=== PATIENT | male | born 1980 | race Caucasian/White ===

== ENCOUNTER 2017-12-20 22:31 | Emergency (ER) | payer BC ==
[2017-12-20 22:35] VITALS: BP 140/101; PULSE 98; TEMP 99.8; BMI 28.0
[2017-12-20] MEDS ORDERED: MAG HYDROX/AL HYDROX/SIMETH 30 ML UNIT-DOSE CUP PO ONE (23:13)
[2017-12-20] MEDS ORDERED: FAMOTIDINE 20 MG/50 ML IVPB 20 MG/50 ML MG IVPB ONE (23:17)
[2017-12-20] MEDS ORDERED: MAG HYDROX/AL HYDROX/SIMETH 30 ML UNIT-DOSE CUP ONE (23:17)
--- NOTE | 2017-12-20 23:18 | PDOC ---
History of Present Illness - General Chief Complaint: Chest Pain Stated Complaint: CHEST PAIN Time Seen by Provider: 12/20/17 22:36 History Source: Patient Exam Limitations: No Limitations - History of Present Illness Initial Comments: 12/20/17 23:26 This is a 37-year-old male who has a history of anorexia/bulimia who said he has been purging the last couple a days. Patient said that he developed a burning sensation in his esophagus and epigastric area after purging a couple of times yesterday and then again today. Patient comes in complaining of moderately severe discomfort in his epigastric area radiating up through his esophagus into his chest. Patient denies any shortness of breath, nausea, diaphoresis. Patient denies any history of hypertension high cholesterol or diabetes. Patient is also complaining of lower abdominal crampy pain associated with diarrhea. Patient said he has had multiple episodes of diarrhea over the last 2 days. 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 Patient does have a family history of cardiac disease. Patient is also a smoker. PAST MEDICAL HISTORY: no significant history PAST SURGICAL HISTORY: no significant history FAMILY HISTORY: no pertinant history SOCIAL HISTORY: Pt lives with family and is employed. MEDICATIONS: reviewed ALLERGIES: As per nursing notes Review of Systems General: No fevers or chills, no weakness, no weight loss HEENT: No change in vision. No sore throat,. No ear pain CardioVascular: No chest pain or shortness of breath Respiratory:No cough, or wheezing. Gastrointestinal: no nausea, vomitting, diarrhea or constipation, No rectal bleeding Genitourinary: No dysuria, hematuria, or frequency Musculoskeletal: No joint or muscle pain or swelling Neurologic: No headache, vertigo, dizziness or loss of consciousness Psychiatric: nor depression Skin: No rashes or easy bruising Endocrine: no increased thirst or abnormal weight change Allergic: no skin or latex allergy All other systems reviewed and normal Exam: General: Well-nourished well-developed individual, no acute distress HEENT: Throat: Normal, tonsils normal, no erythema or exudate Neck: Supple, no meningeal signs, no lymphadenopathy Eyes::Pupils equal reactive and round, extraocular motion intact Chest: Nontender to palpation Cardiac: S1-S2 normal, regular rate and rhythm, no murmurs rubs or gallops Respiratory: Lungs clear to auscultation bilateral Abdomen: Soft, nondistended, normal bowel sounds, mildly tender to palpation epigastric area, and moderately tender to palpation left lower quadrant no guarding or rebound. Extremities: Warm, dry, no cyanosis, clubbing, or edema Skin: No rashes Neuro: Alert and oriented x3, CN II - XII intact, nonfocal exam with normal strength, normal sensation, normal reflexes, normal gait, Psych: Normal mood and affect Medical decision making this is a 37-year-old with abdominal pain with some radiation up into his esophagus. Patient has had nausea vomiting and diarrhea over the last couple a days. It is uncertain as to whether or not patient is inducing the vomiting and diarrhea or not. Patient did state that he induced vomiting several times. We'll obtain a workup to include CBC, comp, cardiac enzymes, EKG. We will give some Maalox, Tums and Pepcid. Will reassess and follow up the workup for evaluation EKG shows normal sinus rhythm with an occasional PAC otherwise no acute ST-T wave changes and a normal EKG. 12/21/17 00:07 Reevaluation. Patient states she feels a little bit better after the medication but still is having a significant amount of discomfort in his left lower quadrant area. On reexam patient does still remained tender in the left lower quadrant. Epigastric tenderness seems to have resolved at this point. Will obtain a CAT scan of the abdomen and pelvis to rule out diverticulitis. As patient does have a white count with a left shift. 12/21/17 02:04 Reevaluation patient pain has nearly resolved. Patient had a CAT scan that shows liquid stool in the colon and some aching of the colonic wall consistent with a diarrheal-type illness. Patient was started on Cipro given a first dose in the emergency room and a prescription for 5 more days twice a day was sent to his pharmacy Patient discharged home will follow-up with his primary care doctor Past History - Past Medical History Allergies/Adverse Reactions: Allergies Allergy/AdvReac Type Severity Reaction Status Date / Time No Known Allergies Allergy Verified 08/14/15 10:07 Home Medications: Ambulatory Orders Amphet Asp/Amphet/D-Amphet [Adderall 10 mg Tablet] 10 mg PO BID 08/14/15 Ciprofloxacin [Cipro (Restricted To Id)] 500 mg PO BID #10 tablet 12/21/17 COPD: No Psychiatric Problems: Yes - Surgical History Abdominal Surgery: Yes (HERNIA REPAIR) - Suicide/Smoking/Psychosocial Hx Smoking History: Never smoked Have you smoked in the past 12 months: Yes Number of Cigarettes Smoked Daily: 3 'Breaking Loose' booklet given: 08/14/15 Hx Alcohol Use: Yes (SOCIAL) Drug/Substance Use Hx: No Substance Use Type: None *Physical Exam - Vital Signs Last Vital Signs Temp Pulse Resp BP Pulse Ox 99.8 F H 98 H 20 140/101 98 12/20/17 22:33 12/20/17 22:33 12/20/17 22:33 12/20/17 22:33 12/20/17 22:33 Heart Score/ECG Review - History History: Slightly suspicious - Electrocardiogram EKG: Normal - Age Age: </= 45 - Risk Factors Risk Factors Heart Score: Yes Smoking History, Yes Positive family hx of cardiac disease Based on the list above the patient has:: 1-2 risk factors - Troponin Troponin: </= normal limit - Score Heart Score - Total: 1 ED Treatment Course - LABORATORY CBC & Chemistry Diagram: 12/20/17 23:30 12/20/17 23:30 *DC/Admit/Observation/Transfer Diagnosis at time of Disposition: Nausea vomiting and diarrhea, Infectious diarrhea in adult patient - Discharge Dispostion Disposition: HOME Condition at time of disposition: Stable Admit: No - Prescriptions Prescriptions: Ciprofloxacin [Cipro (Restricted To Id)] 500 mg PO BID #10 tablet - Referrals Referrals: Andres Weller [Primary Care Provider] - - Patient Instructions Additional Instructions: For the pain and discomfort take Maalox, Tums or Pepcid or you can also take all 3 as directed on the [id number] container. In addition to that for the diarrhea take Cipro 1 tablet twice a day for 5 days. Continue to stay well hydrated with electrolyte balance drinks such as Gatorade or Powerade or Pedialyte. Return to the emergency department immediately with ANY new, persistent or worsening symptoms. Continue any medications as previously prescribed by your physician. You should follow up with your primary doctor as soon as possible regarding today's emergency department visit. . Please make sure your doctor reviews the results of your emergency evaluation. Thank you for coming to the Emergency Department today for your care. It was a pleasure to see you today. Please note that your evaluation is INCOMPLETE until you follow-up with your doctor. - Post Discharge Activity
[2017-12-20 23:43] LABS: HEMOGLOBIN 14.8 GM/dl (11.7-16.9); MCH 29.8 pg (25.7-33.7); MCHC 34.4 g/dl (32.0-35.9); MEAN CELL VOLUME 86.8 fl (80-96); MEAN PLT VOLUME 8.2 fl (7.5-11.1); PLATELET COUNT 217 K/MM3 (134-434); RBC 4.95 M/mm3 (4.00-5.60); RDW 11.9 % (11.9-15.9); WHITE BLOOD COUNT 15.4 K/mm3 (4.0-10.8)
[2017-12-20 23:50] LABS: ALBUMIN 4.2 g/dl (3.5-5.0); ALK PHOS 59 U/L (32-92); ANION GAP 9 (8-16); BILIRUBIN,TOTAL 0.7 mg/dl (0.2-1.0); BLOOD UREA NITROGEN 10 mg/dl (7-18); CALCIUM 8.5 mg/dl (8.4-10.2); CHLORIDE 99 mmol/L (98-107); CO2 24 mmol/L (22-28); CREATININE 0.9 mg/dl (0.6-1.3); GLUCOSE,RANDOM 110 mg/dl (74-106); POTASSIUM 3.3 mmol/L (3.5-5.1); SGOT/AST 21 U/L (10-42); SGPT/ALT 20 U/L (10-40); SODIUM 132 mmol/L (136-145); TOT PROT 6.8 g/dl (6.4-8.3)
[2017-12-20 23:53] LABS: PLATELET ESTIMATE ADEQUATE
[2017-12-21] MEDS ORDERED: CIPROFLOXACIN 250 MG TABLET (RESTRICTED TO ID) PO ONE (01:59)
[2017-12-21] MEDS ORDERED: CIPROFLOXACIN 500 MG TABLET (RESTRICTED TO ID) PO ONE (02:03)
[2017-12-21] MEDS ORDERED: FAMOTIDINE IV 20 MG/12 ML VIAL IVPB ONE (23:13)
--- NOTE | 2017-12-27 14:35 | EKG ---
Test Reason : Blood Pressure : / mmHG Vent. Rate : 090 BPM Atrial Rate : 090 BPM P-R Int : 134 ms QRS Dur : 082 ms QT Int : 356 ms P-R-T Axes : 082 084 064 degrees QTc Int : 435 ms SINUS RHYTHM WITH PREMATURE ATRIAL COMPLEXES OTHERWISE NORMAL ECG NO PREVIOUS ECGS AVAILABLE Confirmed by ESTELA AYALA, ANTHONY ([id number]) on 12/27/2017 2:34:43 PM Referred By: DR HUGGINS Confirmed By:ANTHONY PALMER MD
== END 2017-12-21 02:10 | disposition home or self-care (01) ==
LOC: FER 22:31
PROC: 3E033GC Introduction of Other Therapeutic Substance into Peripheral Vein, Percutaneous Approach (ICD-10-PCS; principal; 2017-12-20)
DX: A09 Infectious gastroenteritis and colitis, unspecified (principal); R11.2 Nausea with vomiting, unspecified; F17.210 Nicotine dependence, cigarettes, uncomplicated; F99 Mental disorder, not otherwise specified
CPT/HCPCS: 36415; 71045-TC-FY; 74177-TC; 80053; 82550; 84484; 85025; 93005; 93010; 99281-25

== ENCOUNTER 2022-10-11 02:04 | Emergency (ER) | payer BC ==
[2022-10-11] MEDS ORDERED: methylPREDNISolone NA SUCC 125 MG/2 ML VIAL IVPB ONE (02:13)
[2022-10-11 02:14] VITALS: BP 128/91; PULSE 91; RESP 18; TEMP 97.9; BMI 21.4
[2022-10-11] MEDS ORDERED: methylPREDNISolone NA SUCC 125 MG/2 ML VIAL ONE (02:19)
== END 2022-10-11 05:29 | disposition home or self-care (01) ==
LOC: FER 02:04
PROC: 3E033GC Introduction of Other Therapeutic Substance into Peripheral Vein, Percutaneous Approach (ICD-10-PCS; principal; 2022-10-11)
DX: T78.40XA Allergy, unspecified, initial encounter (principal)
CPT/HCPCS: 99284-25